=== PATIENT | female | born 1965 | race African-American/Black ===

== ENCOUNTER 2024-03-26 11:15 | Emergency (ER) | payer OTHER ==
[~2024-03-26] VITALS: Ht 167.6 cm; Wt 59.0 kg
[2024-03-26 11:17] VITALS: O2SAT 100
[2024-03-26] MEDS: CYCLOBENZAPRINE 10MG TABLET PO ONE (18:19)
[2024-03-26] MEDS: IBUPROFEN 600MG TABLET PO ONE (18:19)
[2024-03-26] MEDS ORDERED: TRAM-534 MT (19:12)
[2024-03-26 19:52] VITALS: BP 159/79; PULSE 64; RESP 17; TEMP 36.5; O2SAT 99
== END 2024-03-26 19:52 | disposition home or self-care (01) ==
LOC: ER 11:15
DX: S42.032A Displaced fracture of lateral end of left clavicle, initial encounter for closed fracture (principal); E11.9 Type 2 diabetes mellitus without complications; I10 Essential (primary) hypertension; W01.0XXA Fall on same level from slipping, tripping and stumbling without subsequent striking against object, initial encounter; Y93.89 Activity, other specified; Y92.89 Other specified places as the place of occurrence of the external cause; Y99.8 Other external cause status
CPT/HCPCS: 72100; 73030; 99284; A4565

== ENCOUNTER 2024-08-22 15:25 | Emergency (ER) | payer MEDICAID ==
[~2024-08-22] VITALS: Ht 165.1 cm; Wt 65.0 kg
[~2024-08-22 15:25] MED LIST: TRAM-534 MT
[2024-08-22 15:32] VITALS: O2SAT 96
[2024-08-22 16:22] LABS: BASOPHILS % 0.7 % (0.0-2.0); EOSINOPHILS % 1.1 % (0.0-5.0); HEMATOCRIT. 41.3 % (36.0-48.0); HEMOGLOBIN. 14.0 g/dL (12.0-16.0); LYMPHOCYTES % 32.7 % (20.0-50.0); MEAN PLATELET VOLUME 7.8 fl (7.4-10.4); MONOCYTES % 7.7 % (2.0-8.0); NEUTROPHILS % 57.8 % (40.0-76.0); PLATELET 289 x1000/uL (130-400); RED BLOOD CELL COUNT 4.61 mill/uL (4.2-5.4); RED CELL DISTRIBUTION WIDTH 13.8 % (11.6-14.6)
[2024-08-22 16:23] LABS: CREATININE 0.5 mg/dL (0.6-1.0)
[2024-08-22 16:24] LABS: UREA NITROGEN BLOOD < 5 mg/dL (9-23)
[2024-08-22 16:25] LABS: ASPARTATE AMINOTRANSFERASE 33 IU/L (<34)
[2024-08-22 16:26] LABS: BILIRUBIN DIRECT < 0.1 mg/dL (<=3.0); BILIRUBIN TOTAL 0.3 mg/dL (0.1-1.0); PROTEIN TOTAL 5.8 g/dL (6.0-8.3)
[2024-08-22] MEDS ORDERED: FAMO20TA8 MT (16:59)
[2024-08-22] MEDS: MAGNESIUM/ALUMINUM HYDROXIDE/SIMETHICONE 30ML UDC PO ONE (17:11)
[2024-08-22 17:17] VITALS: BP 143/88; PULSE 71; RESP 16; TEMP 37; O2SAT 99
== END 2024-08-22 17:34 | disposition home or self-care (01) ==
LOC: ER 15:25
DX: K29.70 Gastritis, unspecified, without bleeding (principal); E11.9 Type 2 diabetes mellitus without complications; I10 Essential (primary) hypertension
CPT/HCPCS: 36415; 74176; 80048; 80076; 85025; 99284

== ENCOUNTER 2024-09-09 11:01 | Emergency (ER) | payer MEDICAID ==
[~2024-09-09] VITALS: Ht 162.6 cm; Wt 61.0 kg
[~2024-09-09 11:01] MED LIST changes: +FAMO20TA8 MT
[2024-09-09 11:07] VITALS: O2SAT 100
[2024-09-09] MEDS ORDERED: HYDR10TA34 MT (11:29)
[2024-09-09 11:38] VITALS: BP 130/76; PULSE 75; RESP 18; TEMP 36.7; O2SAT 100
== END 2024-09-09 11:38 | disposition home or self-care (01) ==
LOC: ER 11:01
DX: F41.1 Generalized anxiety disorder (principal); Z76.0 Encounter for issue of repeat prescription; I10 Essential (primary) hypertension; E11.9 Type 2 diabetes mellitus without complications; E03.9 Hypothyroidism, unspecified
CPT/HCPCS: 99283

== ENCOUNTER 2024-10-18 14:05 | Emergency (ER) | payer MEDICAID ==
[~2024-10-18] VITALS: Ht 167.6 cm; Wt 74.0 kg
[~2024-10-18 14:05] MED LIST changes: +HYDR10TA34 MT
[2024-10-18 14:07] VITALS: TEMP 37.1; O2SAT 99
[2024-10-18 14:47] LABS: BASOPHILS % 0.5 % (0.0-2.0); EOSINOPHILS % 0.2 % (0.0-5.0); HEMATOCRIT. 47.1 % (36.0-48.0); HEMOGLOBIN. 15.2 g/dL (12.0-16.0); LYMPHOCYTES % 27.1 % (20.0-50.0); MEAN PLATELET VOLUME 7.7 fl (7.4-10.4); MONOCYTES % 6.0 % (2.0-8.0); NEUTROPHILS % 66.2 % (40.0-76.0); PLATELET 165 x1000/uL (130-400); RED BLOOD CELL COUNT 5.00 mill/uL (4.2-5.4); RED CELL DISTRIBUTION WIDTH 13.7 % (11.6-14.6)
[2024-10-18 15:01] LABS: CREATININE 0.6 mg/dL (0.6-1.0); TROPONIN I HIGH SENSITIVITY < 4 ng/L (3.0-34); UREA NITROGEN BLOOD < 5 mg/dL (9-23)
[2024-10-18 15:03] LABS: ASPARTATE AMINOTRANSFERASE 45 IU/L (<34); BILIRUBIN DIRECT < 0.1 mg/dL (<=3.0); BILIRUBIN TOTAL 0.2 mg/dL (0.1-1.0); PROTEIN TOTAL 6.7 g/dL (6.0-8.3)
[2024-10-18] MEDS ORDERED: ALPRAZOLAM 0.5 MG TABLET PO ONE (15:15)
[2024-10-18] MEDS ORDERED: ALPR-393 MT (15:33)
[2024-10-18] MEDS: ALPRAZOLAM 0.25 MG TABLET PO NR (15:43)
[2024-10-18] MEDS: ONDANSETRON 4MG ODT PO NR (15:45)
[2024-10-18 16:14] VITALS: BP 155/108; PULSE 94; RESP 18; O2SAT 100
[2024-10-21] MEDS ORDERED: ATOR20TA65 MT (12:17)
[2024-10-21] MEDS ORDERED: CEPH500T MT (12:17)
== END 2024-10-18 16:45 | disposition home or self-care (01) ==
LOC: ER 14:05
DX: F41.9 Anxiety disorder, unspecified (principal); E11.9 Type 2 diabetes mellitus without complications; I10 Essential (primary) hypertension; E03.9 Hypothyroidism, unspecified; Z76.0 Encounter for issue of repeat prescription
CPT/HCPCS: 99284; 80076; 80048; 85025; 84484; 36415; 93005; Q0162